=== PATIENT | female | born 1960 | race Caucasian/White ===

== ENCOUNTER 2020-08-05 07:20 | Outpatient (CLI) | payer OTHER, SELFPAY ==
--- NOTE | 2020-08-05 07:27 | MM_ITS ---
WS: [id number] SCREENING DIGITAL MAMMOGRAM WITH CAD HISTORY: SCREENING COMPARISON: 05/03/2019, 05/25/2018 and 05/10/2017 Bilateral CC and MLO views submitted. Computer aided detection analyzed. Breast composition: The breasts are heterogeneously dense, which may obscure small masses. Asymmetry measuring 12 mm upper outer quadrant of the RIGHT breast at a middle depth with mild distor tion. There is an additional linear asymmetry measuring 3.0 cm upper outer quadrant of the LEFT breas t, posterior which is new. 10 mm nodule in the medial LEFT breast seen only on the CC projection. MM/[place] [id number] IMPRESSION: BI-RADS: 0-Incomplete: Need additional imaging evaluation FOLLOW UP: Need Additional Imaging Bilateral breast: Spot compression views (CC and MLO). True ML. Ultrasound to debby sosa if abnormality persists.
== END 2020-08-05 07:21 | disposition home or self-care (01) ==
LOC: RADSHAW 07:24
PROVIDERS: PCP Internal Medicine; Visit Provider Internal Medicine
DX: Z12.31 Encounter for screening mammogram for malignant neoplasm of breast (principal); N64.89 Other specified disorders of breast
CPT/HCPCS: 77067

== ENCOUNTER 2020-08-23 07:41 | Outpatient (CLI) | payer OTHER, SELFPAY ==
--- NOTE | 2020-08-23 07:44 | MM_ITS ---
WS: [id number] BILATERAL ADDITIONAL VIEWS DIGITAL MAMMOGRAM WITH CAD LEFT breast ultrasound, limited HISTORY: INCONCLUSIVE MAMMO COMPARISON: 08/05/2020, 07/03/2019, 05/25/2018 and 05/10/2017 Technique: Bilateral spot compression views and ML views. Breast composition: The breasts are heterogeneously dense, which may obscure small masses. The asymm etry seen in the lateral RIGHT breast resolves with additional imaging. No residual distortion or inc reased density. Multiple asymmetries in the LEFT breast did not completely resolve with additional sp ot compression views. There is no distortion associated with the asymmetries. Asymmetry noted in the upper outer quadrant of the LEFT breast and in the medial LEFT breast in the anterior and posterior d epth. LEFT breast ultrasound, limited. Ultrasound of the upper outer quadrant of the LEFT breast demonstrates a 1.2 x 0.7 x 0.4 cm hypoechoi c elongated nodule with no increased vascularity. This may be a mildly prominent duct or complex cyst . No additional asymmetries are noted in the upper outer quadrant of the LEFT breast or in the medial breast. MM/[id number] IMPRESSION: BI-RADS: 3-Probably Benign FOLLOW UP: 6 Month Follow-up Asymmetries in the LEFT breast persists with additional views but no abnormalit y seen mammographically. Patient did provide a history of recent medication rm nge. If the patient was placed on hormone therapy these asymmetries may be rela loreto to hormone replacement therapy. As these findings are new since the prior s rosannedy 6 month follow-up is recommended. Recommend 6 month LEFT diagnostic mammogram with possible ultrasound.
--- NOTE | 2020-08-23 08:20 | US_ITS ---
WS: [id number] BILATERAL ADDITIONAL VIEWS DIGITAL MAMMOGRAM WITH CAD LEFT breast ultrasound, limited HISTORY: INCONCLUSIVE MAMMO COMPARISON: 08/05/2020, 07/03/2019, 05/25/2018 and 05/10/2017 Technique: Bilateral spot compression views and ML views. Breast composition: The breasts are heterogeneously dense, which may obscure small masses. The asymm etry seen in the lateral RIGHT breast resolves with additional imaging. No residual distortion or inc reased density. Multiple asymmetries in the LEFT breast did not completely resolve with additional sp ot compression views. There is no distortion associated with the asymmetries. Asymmetry noted in the upper outer quadrant of the LEFT breast and in the medial LEFT breast in the anterior and posterior d epth. LEFT breast ultrasound, limited. Ultrasound of the upper outer quadrant of the LEFT breast demonstrates a 1.2 x 0.7 x 0.4 cm hypoechoi c elongated nodule with no increased vascularity. This may be a mildly prominent duct or complex cyst . No additional asymmetries are noted in the upper outer quadrant of the LEFT breast or in the medial breast. US/US breast LT limited* [id number] IMPRESSION: BI-RADS: 3-Probably Benign FOLLOW UP: 6 Month Follow-up Asymmetries in the LEFT breast persists with additional views but no abnormalit y seen mammographically. Patient did provide a history of recent medication rm nge. If the patient was placed on hormone therapy these asymmetries may be rela loreto to hormone replacement therapy. As these findings are new since the prior s rosannedy 6 month follow-up is recommended. Recommend 6 month LEFT diagnostic mammogram with possible ultrasound.
== END 2020-08-23 07:42 | disposition home or self-care (01) ==
LOC: RADSHAW 07:43
PROVIDERS: PCP Internal Medicine; Visit Provider Internal Medicine
DX: R92.2 Inconclusive mammogram (principal); N64.89 Other specified disorders of breast
CPT/HCPCS: 76642; 77066

== ENCOUNTER 2022-11-10 10:32 | Emergency (ER) | payer OTHER, SELFPAY ==
[2022-11-10 10:41] VITALS: BP 166/89; PULSE 109; RESP 20; TEMP 36.8; BMI 30.9
--- NOTE | 2022-11-10 11:07 | XRR_ITS ---
PROCEDURE INFORMATION: Exam: XR Chest Exam date and time: 11/10/2022 11:31 AM Age: 62 years old Clinical indication: Shortness of breath; Additional info: SOB TECHNIQUE: Imaging protocol: Radiologic exam of the chest. Views: 1 view. COMPARISON: CT abdomen pelvis w con* [id number] 03/19/2017 10:35 AM FINDINGS: Lungs: Lung volumes are mildly decreased likely due to body habitus. No consolidation. Pleural spaces: Unremarkable. No pleural effusion. No pneumothorax. Heart/Mediastinum: Indistinct left cardiophrenic angle density believed secondary to incidental epicardial fat. No cardiomegaly. Bones/joints: Unremarkable for age. XR/XR chest 1V portable [id number] IMPRESSION: No active disease.
[2022-11-10 11:32] VITALS: BP 138/83; PULSE 109; RESP 24; O2SAT 100
--- NOTE | 2022-11-10 11:39 | W.ED.SOB ---
HPI - SOB/Dyspnea General: Chief Complaint: Shortness of Breath/Dyspnea Stated Complaint: SOB Time Seen by Provider: 11/10/22 11:29 History of Present Illness: HPI Narrative: Patient presents to the ER with complaints of shortness of breath and tachypnea. Patient is seen here primary care doctor twice in the last week since this is started. Patient has finished a round of what sounded like a Medrol Dosepak and azithromycin. Patient is not getting any better. Patient has used her rescue inhaler today but not her nebulizer. Patient is anxious at this time. She denies any chest pain. MD elicited complaint: shortness of breath Pertinent past history: asthma and other (Seasonal allergies) Onset (ago): day(s) (7 days ago) Context: allergen exposure Timing: constant and progressively worsening Severity: mild Exacerbating factors: exertion Relieving factors: nothing Known history of: asthma Associated symptoms: Deny abdominal pain, chest pain, fever(s), nausea, palpitations or vomiting Treatment prior to arrival: bronchodilator Review of Systems General: Reports: 10 or more systems reviewed and unremarkable except in HPI and below Const: Denies: fever(s) or chills Eyes: Denies: change in vision or photophobia ENMT: Denies: throat pain or enlarged tonsils Card: Denies: chest pain, palpitations, irregular heart rhythm or edema Resp: Reports: dyspnea and wheezing; Denies: productive cough or non-productive cough GI: Denies: abdominal pain, nausea, vomiting or diarrhea : Denies: flank pain, difficulty voiding or dysuria Musc: Denies: neck pain or back pain Skin/Breast: Denies: rash or pruritus Physical Exam Const: COMMON NORMALS: no acute distress, average body habitus, patient oriented x3, no limitations, healthy appearing, alert and well nourished HENMT: COMMON NORMALS: normocephalic, atraumatic, hearing grossly normal bilaterally, external ears normal, Normal external nose present and moist oral mucous membranes HEAD & SCALP: normocephalic and atraumatic NOSE: Normal external nose present EXTERNAL EAR: Yes external ears normal Eye: COMMON NORMALS: Equal, round and reactive pupils present, EOMs intact bilaterally, conjunctivae normal and no scleral icterus CONJUNCTIVA: Yes conjunctivae normal PUPIL: Yes Equal, round and reactive pupils present Neck/C-Spine: COMMON NORMALS: full ROM, no lymphadenopathy, supple, no meningeal signs, no JVD and Thyroid normal THYROID: Thyroid normal Lymph: LYMPHATIC: no lymphadenopathy noted Chest: COMMONS NORMALS: normal inspection of the chest and normal palpation of entire chest wall Resp: EFFORT & INSPECTION: Yes able to speak in complete sentences, Yes symmetric chest movement and Yes tachypneic AUSCULTATION: wheezes scattered wheezes Cardio: COMMON NORMALS: no JVD, regular rate, regular rhythm, S1 normal heart sound present and S2 normal heart sound present RATE: regular rate RHYTHM: regular rhythm HEART SOUNDS: S1 normal heart sound present and S2 normal heart sound present GI: COMMON NORMALS: Normal to inspection, nondistended, normoactive bowel sounds present, Soft to palpation, non-tender, No hepatosplenomegaly present and no masses PALPATION: Yes Soft to palpation and Yes No hepatosplenomegaly present Neuro: COMMON NORMALS: patient oriented x3 SENSORIUM/ORIENTATION: Yes alert MENINGEAL SIGNS: Yes no meningeal signs Course Vital Signs: Vital signs: Vital Signs Temperature 98.3 F 11/10/22 10:41 Pulse Rate 94 11/10/22 12:07 Respiratory Rate 20 H 11/10/22 12:03 Blood Pressure 138/83 11/10/22 11:32 Pulse Oximetry 99 11/10/22 12:03 Oxygen Delivery Me thod Room Air 11/10/22 12:03 MDM - SOB/Dyspnea Medical Decision Making Patient presents to the ER with complaints of tachypnea and shortness of breath. Patient has been to her primary care doc at least twice treated with antibiotics and steroids but does not feel she is getting any better. Lab work was obtained which revealed a white count of 14.2 hemoglobin hematocrit of 16.1 and 49.3 metabolic panel was essentially benign chest x-ray was essentially benign as well. Differential Diagnosis Likely asthma with exacerbation; Unlikely acute exacerbation of chronic obstructive airways disease, congestive heart failure, community acquired pneumonia or pulmonary embolism Medical Records I reviewed the patient's medical records. Lab Data I reviewed the patient's lab results. 11/10/22 11:50 11/10/22 11:50 Labs/Radiology: Radiology Impressions Chest CT 11/10/22 12:38 IMPRESSION: 1. Subsegmental opacification with associated bronchiectasis at the lingula. Suspect chronic atelectasis. Mildly progressed since 2016. 2. Otherwise no pneumonia. 3. No cardiomegaly. 4. No pericardial effusion or pleural effusion. 5. Prior cholecystectomy. Laboratory Results WBC 14.2 10^3/uL (4.0-10.0) H 11/10/22 11:50 RBC 5.49 10^6/uL (4.1-5.3) H 11/10/22 11:50 Hgb 16.1 g/dL (11.5-15.3) H 11/10/22 11:50 Hct 49.3 % (37.0-47.0) H 11/10/22 11:50 MCV 89.8 fl (81-99) 11/10/22 11:50 MCH 29.3 pg (28.0-34.0) 11/10/22 11:50 MCHC 32.7 g/dL (30.0-36.0) 11/10/22 11:50 RDW 12.6 % (12.1-15.1) 11/10/22 11:50 Plt Count 364 10^3/cmm (130-400) 11/10/22 11:50 MPV 10.7 fL (7.4-10.4) H 11/10/22 11:50 Neut % (Auto) 70.3 % 11/10/22 11:50 Lymph % (Auto) 20.8 % 11/10/22 11:50 [place] % (Auto) 5.7 % 11/10/22 11:50 Eos % (Auto) 2.1 % 11/10/22 11:50 Baso % (Auto) 0.5 % 11/10/22 11:50 Neut # (Auto) 9.95 10^3/uL (1.8-7.7) H 11/10/22 11:50 Lymph # (Auto) 3.0 10^3/uL (0.8-4.8) 11/10/22 11:50 [place] # (Auto) 0.8 10^3/uL (0.2-0.9) 11/10/22 11:50 Eos # (Auto) 0.3 10^3/uL (0.0-0.8) 11/10/22 11:50 Baso # (Auto) 0.1 10^3/uL (0.0-0.1) 11/10/22 11:50 Nucleated RBC % (auto) 0 % 11/10/22 11:50 Nucleated RBCs # 0.0 /100WBC 11/10/22 11:50 Sodium 138 mmol/L (136-145) 11/10/22 11:50 Potassium 4.2 mmol/L (3.5-5.1) 11/10/22 11:50 Chloride 103 mmol/L (98-107) 11/10/22 11:50 Carbon Dioxide 22 mmol/L (22-29) 11/10/22 11:50 Anion Gap 17.2 (5-19) 11/10/22 11:50 BUN 11 mg/dL (8-23) 11/10/22 11:50 Creatinine 0.7 mg/dL (0.5-0.9) 11/10/22 11:50 GFR Calculation 85.1 mL/min (90-130) L 11/10/22 11:50 Glucose 87 mg/dL (65-115) 11/10/22 11:50 Calculated Osmolality 285 mOsm/kg (285-295) 11/10/22 11:50 Calcium 9.6 mg/dL (8.5-10.5) 11/10/22 11:50 Total Bilirubin 0.3 mg/dL (0.15-1.2) 11/10/22 11:50 AST 14 U/L (0-32) 11/10/22 11:50 ALT 16 U/L (0-33) 11/10/22 11:50 Alkaline Phosphatase 101 U/L (35-105) 11/10/22 11:50 NT-Pro-B Natriuret Pep 36 pg/mL (0-125) 11/10/22 11:50 Total Protein 6.7 g/dL (6.6-8.7) 11/10/22 11:50 Albumin 3.9 g/dL (3.5-5.2) 11/10/22 11:50 Globulin 2.8 g/dL (1.3-4.6) 11/10/22 11:50 Discharge Plan Discharge Patient Disposition: Home Clinical Impression: Anxiety Condition: Stable Prescriptions: No Action albuterol sulfate 2.5 mg /3 mL (0.083 %) solution for nebulization 2.5 mg inhalation Q6H PRN (Reason: Shortness Of Breath) tizanidine 4 mg tablet 4 mg PO DAILY PRN (Reason: Muscle Pain) liothyronine 25 mcg tablet 25 mcg PO DAILY lorazepam 0.5 mg tablet 0.5 mg PO TID PRN (Reason: Anxiety) levothyroxine 125 mcg tablet 125 mcg PO DAILY budesonide 0.5 mg/2 mL suspension for nebulization 0.5 mg inhalation Q6H PRN (Reason: Shortness Of Breath) montelukast 10 mg tablet 10 mg PO DAILY duloxetine 30 mg capsule,delayed release(DR/EC) 30 mg PO DAILY Symbicort 160-4.5 mcg/actuation HFA aerosol inhaler 2 puff INHALATION BID Xyzal 5 mg Tablet 5 mg PO DAILY Discharge Orders: Discharge ED (Routine); Ordered 11/10/22 Ordered By: Alonso Sanchez Referrals: Mariano Sahu DO [Primary Care Provider] - 1 week Patient Instructions: Dyspnea, Anxiety (ED) Activity Restrictions/Additional Instructions: Please take your lorazepam as instructed for anxiety. Please take your Symbicort, budesonide, albuterol, Xyzal, Singulair as directed. Please follow-up with your primary care practitioner next 1 to 2 weeks as needed. Coding Level of Care Code ED Flanging Roll Operator for Jono Marina
[2022-11-10 11:56] LABS: Basophils # 0.1 10^3/uL (0.0-0.1); Basophils % 0.5 %; Eosinophils # 0.3 10^3/uL (0.0-0.8); Eosinophils % 2.1 %; Hematocrit 49.3 % (37.0-47.0); Hemoglobin 16.1 g/dL (11.5-15.3); Lymphocytes % 20.8 %; Mean Corpuscular HGB Conc 32.7 g/dL (30.0-36.0); Mean Corpuscular Hemoglobin 29.3 pg (28.0-34.0); Mean Corpuscular Volume 89.8 fl (81-99); Mean Platelet Volume 10.7 fL (7.4-10.4); Monocytes # 0.8 10^3/uL (0.2-0.9); Monocytes % 5.7 %; Neutrophils # 9.95 10^3/uL (1.8-7.7); Neutrophils % 70.3 %; Nucleated Red Blood Cells % 0 %; Platelet Count 364 10^3/cmm (130-400); Red Blood Count 5.49 10^6/uL (4.1-5.3); Red Cell Distribution Width 12.6 % (12.1-15.1); White Blood Count 14.2 10^3/uL (4.0-10.0)
[2022-11-10 12:03] VITALS: PULSE 96; RESP 20; O2SAT 99
[2022-11-10] MEDS: ipratropium-albuterol 3 mL Neb INHALATION (12:03)
[2022-11-10 12:07] VITALS: PULSE 94
[2022-11-10] MEDS: LORazepam 2 mg/mL INJ 1 mL 1 MG IVP (12:15)
[2022-11-10 12:29] LABS: Alanine Aminotransferase 16 U/L (0-33); Albumin Level 3.9 g/dL (3.5-5.2); Alkaline Phosphatase 101 U/L (35-105); Anion Gap 17.2 (5-19); Aspartate Amino Transferase 14 U/L (0-32); Blood Urea Nitrogen 11 mg/dL (8-23); Calcium 9.6 mg/dL (8.5-10.5); Carbon Dioxide 22 mmol/L (22-29); Chloride 103 mmol/L (98-107); Globulin 2.8 g/dL (1.3-4.6); Glomerular Filtration Rate 85.1 mL/min (90-130); Glucose 87 mg/dL (65-115); NT Pro B Type Natriuretic Pept 36 pg/mL (0-125); Osmolality Calculated 285 mOsm/kg (285-295); Potassium 4.2 mmol/L (3.5-5.1); Sodium 138 mmol/L (136-145); Total Bilirubin 0.3 mg/dL (0.15-1.2); Total Protein 6.7 g/dL (6.6-8.7)
--- NOTE | 2022-11-10 12:38 | CT_ITS ---
WS: [id number] CT chest wo con [id number] HISTORY: dyspnea, TECHNIQUE: Axial imaging performed through the thorax. Coronal and sagittal reformats are submitted. All CT scans at [facility] use at least one of these dose optimization techniques: automated exposure control; mA and/or kV adjustment per patient size (includes targeted exams where dose is mat ched to clinical indication); or iterative reconstruction. CONTRAST: None DLP: 521.11 mGy.cm COMPARISON: None available. Lungs and central airway: Well aerated lungs. Focal subsegmental opacification with associated bronch iectasis in the lingula. No mass or pneumonia. Pleura: Normal. No pleural effusion. Heart and pericardium: Normal size heart with no pericardial effusion. Mediastinum and ledy: Calcified mediastinal and hilar lymph nodes. No adenopathy. Vessels: Normal size aortic and pulmonary artery. No coronary artery calcifications. Chest wall and lower neck: 5 mm LEFT thyroid nodule. Upper abdomen: Small hiatal hernia. Liver is mildly enlarged. Prior cholecystectomy. Splenic granulom michelle. No adrenal mass. Osseous structures: No destructive process. CT/CT chest wo con [id number] IMPRESSION: 1. Subsegmental opacification with associated bronchiectasis at the lingula. S uspect chronic atelectasis. Mildly progressed since 2017. 2. Otherwise no pneumonia. 3. No cardiomegaly. 4. No pericardial effusion or pleural effusion. 5. Prior cholecystectomy.
== END 2022-11-10 15:09 | disposition home or self-care (01) ==
PROVIDERS: Family Medicine; Emergency Provider Emergency Medicine; PCP Internal Medicine
DX: F41.9 Anxiety disorder, unspecified (principal)
CPT/HCPCS: 36415; 71045; 71250; 80053; 83880; 85025; 94640; 96374; 99285; J2060

== ENCOUNTER 2024-02-09 10:30 | Emergency (ER) | payer OTHER, SELFPAY ==
[2024-02-09 10:57] VITALS: BP 124/81; PULSE 115; RESP 18; TEMP 36.4; O2SAT 96
[2024-02-09 11:06] LABS: Basophils % 0.4 %; Eosinophils # 0.2 10^3/uL (0.0-0.8); Eosinophils % 2.7 %; Hematocrit 51.8 % (36-47); Lymphocytes % 26.5 %; Mean Corpuscular Hemoglobin 28.8 pg (27-33); Mean Corpuscular Volume 87.2 fl (85-98); Monocytes # 0.7 10^3/uL (0.2-0.9); Monocytes % 8.8 %; Neutrophils # 4.63 10^3/uL (1.8-7.7); Neutrophils % 61.5 %; Nucleated Red Blood Cells % 0 %; Platelet Count 377 10^3/cmm (157-399); Red Blood Count 5.94 10^6/uL (3.85-5.65); Red Cell Distribution Width 12.7 % (12.1-15.1); White Blood Count 7.52 10^3/uL (3.29-11.43)
[2024-02-09 11:23] LABS: Alanine Aminotransferase 83 U/L (0-33); Alkaline Phosphatase 166 U/L (35-105); Anion Gap 15.4 (5-19); Aspartate Amino Transferase 60 U/L (0-32); Blood Urea Nitrogen 9 mg/dL (8-23); Calcium 9.2 mg/dL (8.5-10.5); Carbon Dioxide 22 mmol/L (22-29); Chloride 106 mmol/L (98-107); Creatinine Clr Calc Pharmacy 102.6097; Globulin 3.3 g/dL (1.3-4.6); Glomerular Filtration Rate 101.3 mL/min (90-130); Glucose 104 mg/dL (65-115); Lipase 31 U/L (13-60); Osmolality Calculated 287 mOsm/kg (285-295); Potassium 4.4 mmol/L (3.5-5.1); Sodium 139 mmol/L (136-145); Total Bilirubin 0.5 mg/dL (0.15-1.2); Total Protein 7.3 g/dL (6.6-8.7)
--- NOTE | 2024-02-09 11:36 | CT_ITS ---
WS: [id number] CT ABDOMEN PELVIS TECHNIQUE: Contrast-enhanced CT of the abdomen and pelvis with coronal and sagittal reformatted image s. CLINICAL INFORMATION: diarrhea/llq pain COMPARISON: CT 2017 DLP: 793.[address] scans at [facility] use at least one of these dose optimization techniques: automated e xposure control; mA and/or kV adjustment per patient size (includes targeted exams where dose is matc hed to clinical indication); or iterative reconstruction. FINDINGS: Sigmoid diverticulosis. Small amount of inflammatory stranding and edema within the LEFT lower quadrant descending colon and proximal sigmoid colon compatible with acute diverticulitis. No evidence of of abscess or drainable f luid collection. No evidence of bowel obstruction. Lung bases are well aerated. Infiltration filtration of liver. Splenic granulomas. Cholecystectomy. N ormal portal vein and splenic vein. Normal pancreatic parenchymal enhancement. Small esophageal herni a. Adrenal glands are normal. Normal renal parenchymal enhancement. No hydronephrosis. Normal caliber abdominal aorta. Tiny fat-containing umbilical hernia. Normal appendix. Disc space narrowing worse a t L5-S1. CT/CT abdomen pelvis w con* [id number] IMPRESSION: 1. Mild acute diverticulitis in the LEFT lower quadrant descending colon and p roximal sigmoid colon with surrounding inflammatory stranding and slight indura tion. 2. No evidence of abscess or drainable fluid collection. 3. No other acute findings. Notified Flaco Mayer MD at 02/09/2024 12:54 PM.
--- NOTE | 2024-02-09 11:37 | ED_ITS ---
HPI - Abdominal Pain 2 General: Chief Complaint: Abdominal Pain Stated Complaint: abd pain Time Seen by Provider: 02/09/24 11:31 Source: patient Mode of arrival: ambulatory Limitations: no limitations History of Present Illness: 63-year-old female states that she has b een having abdominal pain over the last month it has been worsening states pains in her left lower quadrant she also has had some intermittent constipation and diarrhea states pain sharp in nature rates it a 4 out of 10 she denies any fevers denies any worsening proving factors. Associated Symptoms: Reports diarrhea; Denies chills, dysuria, fever(s), nausea and vomiting Review of Systems 2 Const: Denies: fever(s), chills, body aches or change in appetite ENMT: Denies: throat pain or dental pain Card: Denies: chest pain Resp: Denies: dyspnea GI: Reports: abdominal pain and diarrhea; Denies: nausea or vomiting : Denies: dysuria Musc: Denies: neck pain or back pain Skin/Breast: Denies: rash Neuro: Denies: headache(s) Physical Exam 2 Const: COMMON NORMALS: no acute distress, patient oriented x3 and healthy appearing HENMT: COMMON NORMALS: normocephalic and atraumatic HEAD & SCALP: n ormocephalic and atraumatic Neck/C-Spine: COMMON NORMALS: full ROM and supple Chest: COMMONS NORMALS: normal inspection of the chest Resp: COMMON NORMALS: normal respiratory effort Cardio: COMMON NORMALS: regular rate, regular rhythm and No murmurs present (Cardio) RATE: regular rate RHYTHM: regular rhythm GI: COMMON NORMALS: Normal to inspection, nondistended, normoactive bowel sounds present, Soft to palpation and no masses PALPATION: Yes Soft to palpation and Yes Tenderness to palpation present (GI) Details: LLQ Extremity: COMMON NORMALS: normal to inspection and full ROM Neuro: COMMON NORMALS: patient oriented x3, moves all extremities and no focal motor deficits Psych: COMMON NORMALS: mental status grossly normal, Normal thought process present and cooperative THOUGHT PROCESS: Normal thought process present Skin: COMMON NORMALS: no rashes or lesions noted and no wounds GENERAL SKIN EXAM: no rashes or lesions noted Course 2 Vital Signs: Vital signs: Vital Signs Temperature 97.6 F 02/09/24 10:57 Pulse Rate 102 H 02/09/24 11:46 Respiratory Rate 16 07/31/24 11:46 Blood Pressure 134/100 02/09/24 11:46 Pulse Oximetry 97 02/09/24 11:46 Oxygen Delivery Me thod Room Air 02/09/24 11:46 MDM - Abdominal Pain Medical Decision Making Patient presents with diarrhea along with some left lower quadrant pain CT shows a diverticulitis she has been well-appearing here not septic appearing we will start her on antibiotics along with pain meds she is follow-up with PCP and return if worsening. Medical Records I reviewed the patient's medical records. Lab Data I reviewed the patient's lab results. 02/09/24 10:55 02/09/24 10:55 Labs/Radiology: Radiology Impressions Abdomen/Pelvis CT 02/09/24 11:36 IMPRESSION: 1. Mild acute diverticulitis in the LEFT lower quadrant descending colon and proximal sigmoid colon with surrounding inflammatory stranding and slight induration. 2. No evidence of abscess or drainable fluid collection. 3. No other acute findings. Notified Flaco Mayer MD at 02/09/2024 12:54 PM. Laboratory Results WBC 7.52 10^3/uL (3.29-11.43) 02/09/24 10:55 RBC 5.94 10^6/uL (3.85-5.65) H 02/09/24 10:55 Hgb 17.10 g/dL (11.27-16.99) H 02/09/24 10:55 Hct 51.8 % (36-47) H 02/09/24 10:55 MCV 87.2 fl (85-98) 02/09/24 10:55 MCH 28.8 pg (27-33) 02/09/24 10:55 MCHC 33.0 g/dL (30-55) 02/09/24 10:55 RDW 12.7 % (12.1-15.1) 02/09/24 10:55 Plt Count 377 10^3/cmm (157-399) 02/09/24 10:55 MPV 11.0 fL (7.4-10.4) H 02/09/24 10:55 Neut % (Auto) 61.5 % 02/09/24 10:55 Lymph % (Auto) 26.5 % 02/09/24 10:55 [place] % (Auto) 8.8 % 02/09/24 10:55 Eos % (Auto) 2.7 % 02/09/24 10:55 Baso % (Auto) 0.4 % 02/09/24 10:55 Neut # (Auto) 4.63 10^3/uL (1.8-7.7) 02/09/24 10:55 Lymph # (Auto) 2.0 10^3/uL (0.8-4.8) 02/09/24 10:55 [place] # (Auto) 0.7 10^3/uL (0.2-0.9) 02/09/24 10:55 Eos # (Auto) 0.2 10^3/uL (0.0-0.8) 02/09/24 10:55 Baso # (Auto) 0.0 10^3/uL (0.0-0.1) 02/09/24 10:55 Nucleated RBC % (auto) 0 % 02/09/24 10:55 Nucleated RBCs # 0.0 /100WBC 02/09/24 10:55 Sodium 139 mmol/L (136-145) 02/09/24 10:55 Potassium 4.4 mmol/L (3.5-5.1) 02/09/24 10:55 Chloride 106 mmol/L (98-107) 02/09/24 10:55 Carbon Dioxide 22 mmol/L (22-29) 02/09/24 10:55 Anion Gap 15.4 (5-19) 02/09/24 10:55 BUN 9 mg/dL (8-23) 02/09/24 10:55 Creatinine 0.6 mg/dL (0.5-0.9) 02/09/24 10:55 GFR Calculation 101.3 mL/min (90-130) 02/09/24 10:55 Glucose 104 mg/dL (65-115) 02/09/24 10:55 Calculated Osmolality 287 mOsm/kg (285-295) 02/09/24 10:55 Calcium 9.2 mg/dL (8.5-10.5) 02/09/24 10:55 Total Bilirubin 0.5 mg/dL (0.15-1.2) 02/09/24 10:55 AST 60 U/L (0-32) H 02/09/24 10:55 ALT 83 U/L (0-33) H 02/09/24 10:55 Alkaline Phosphatase 166 U/L (35-105) H 02/09/24 10:55 Total Protein 7.3 g/dL (6.6-8.7) 02/09/24 10:55 Albumin 4.0 g/dL (3.5-5.2) 02/09/24 10:55 Globulin 3.3 g/dL (1.3-4.6) 02/09/24 10:55 Lipase 31 U/L (13-60) 02/09/24 10:55 Urine Color Yellow (Yellow) 02/09/24 11:39 Urine Appearance Clear (CLEAR) 02/09/24 11:39 Urine pH 6.0 (5-7) 02/09/24 11:39 Ur Specific [place] 1.005 (1.005-1.030) 02/09/24 11:39 Urine Protein Negative (Negative) 02/09/24 11:39 Urine Glucose (UA) Negative (Normal) 02/09/24 11:39 Urine Ketones Trace (Negative) 02/09/24 11:39 Urine Blood Negative (Negative) 02/09/24 11:39 Urine Nitrate Negative (Negative) 02/09/24 11:39 Urine Bilirubin Negative (Negative) 02/09/24 11:39 Urine Urobilinogen 0.2 mg/dL (Negative) 02/09/24 11:39 Ur Leukocyte Esterase Negative (Negative) 02/09/24 11:39 Amorphous Sediment Not Reportable 02/09/24 11:39 All radiology interpretation(s) finalized by discharge Discharge Plan Discharge Patient Disposition: Home Clinical Impression: Diverticulitis Condition: Stable Prescriptions: New hydrocodone-acetaminophen 5-325 mg tablet 1 tab PO Q6H PRN (Reason: pain) Qty: 14 0RF metronidazole 500 mg tablet 500 mg PO Q8H 7 Days Qty: 21 0RF ciprofloxacin HCl [Cipro] 500 mg tablet 500 mg PO BID Qty: 14 0RF ondansetron 4 mg tablet,disintegrating 4 mg PO Q6H PRN (Reason: nausea and vomiting) Qty: 14 0RF No Action albuterol sulfate 2.5 mg /3 mL (0.083 %) solution for nebulization 2.5 mg inhalation Q6H PRN (Reason: Shortness Of Breath) kirstiedine 4 mg tablet 4 mg PO DAILY PRN (Reason: Muscle Pain) liothyronine 25 mcg tablet 25 mcg PO DAILY lorazepam 0.5 mg tablet 0.5 mg PO TID PRN (Reason: Anxiety) levothyroxine 125 mcg tablet 125 mcg PO DAILY budesonide 0.5 mg/2 mL suspension for nebulization 0.5 mg inhalation Q6H PRN (Reason: Shortness Of Breath) montelukast 10 mg tablet 10 mg PO DAILY duloxetine 30 mg capsule,delayed release(DR/EC) 30 mg PO DAILY Symbicort 160-4.5 mcg/actuation HFA aerosol inhaler 2 puff INHALATION BID Xyzal 5 mg Tablet 5 mg PO DAILY Discharge Orders: Discharge ED (Routine); Ordered 02/09/24 Ordered By: Flaco Mayer Referrals: Mariano Sahu DO [Primary Care Provider] - Discharge Diet: Advance as tolerated Discharge Activity: Resume usual activity Patient Instructions: Diverticulitis (ED) Coding Level of Care Code ED Health Technician Hearing for Jono Marina
[2024-02-09 11:46] VITALS: BP 134/100; PULSE 102; RESP 16; O2SAT 97
[2024-02-09 11:54] LABS: Charge for UA Resulting for Rev
[2024-02-09 12:01] VITALS: PULSE 101; O2SAT 96
[2024-02-09 12:13] LABS: Bilirubin Urine Negative (Negative); Blood Urine Negative (Negative); Glucose Urine UA Negative (Normal); Ketones Urine Trace (Negative); Leukocyte Esterase Urine Negative (Negative); Nitrate Urine Negative (Negative); Protein Urine Negative (Negative); Specific Gravity, Urine 1.005 (1.005-1.030); Urine Appearance Clear (CLEAR); Urine Color Yellow (Yellow); Urobilinogen Urine 0.2 mg/dL (Negative)
[2024-02-09] MEDS: iohexol 350 mg/mL 500 mL Btl (per mL) IV (12:13)
[2024-02-09 12:31] VITALS: PULSE 97; O2SAT 98
[2024-02-09 13:01] VITALS: PULSE 101; O2SAT 99
--- NOTE | 2024-02-09 13:27 | PC.NURSE ---
Med/Surg received a call from [facility] stating that they had received a Rx for Hydrocodone-APAP and they didn't have that medication in stock at this time. I called and spoke with the patient and she stated she was still in [employer], so I offered to have it sent to [facility] location that has a drive thru option. She agreed to this. I called and spoke with Dr. Mayer and asked him to please send the Rx to the [facility] location and he is in agreement. I called back and spoke with the patient and informed her the Rx is going to [place] as we discussed. She verbalizes understanding and denies no further questions or concerns.
== END 2024-02-09 13:20 | disposition home or self-care (01) ==
PROVIDERS: Emergency Provider Emergency Medicine; PCP Internal Medicine
DX: K57.92 Diverticulitis of intestine, part unspecified, without perforation or abscess without bleeding (principal)
CPT/HCPCS: 36415; 74177; 80053; 81003; 81015; 83690; 85025; 99285; Q9967

== ENCOUNTER 2024-09-18 14:00 | Outpatient (CLI) | payer OTHER, SELFPAY ==
--- NOTE | 2024-09-18 14:01 | MM_ITS ---
WS: [id number] BILATERAL 3D TOMOSYNTHESIS DIGITAL SCREENING MAMMOGRAPHY WITH CAD CLINICAL INFORMATION: SCREENING HISTORY: Screening mammogram. No current complaints. COMPARISON: 2020 TECHNIQUE: Bilateral CC and MLO views. FINDINGS: The breasts are composed of heterogeneous fibroglandular density tissue, which can limit the detection of small underlying mass lesions. No suspicious mass, asymmetry, calcifications, or architectural distortion. No evidence of malignancy. A few incidental punctate calcifications. Stable asymmetries upper outer LEFT breast. MM/MM [facility] tomosynthesis [id number] IMPRESSION: DENSITY: The breasts are heterogeneously dense, which may obscure small masses. BI-RADS: 2 - Benign FOLLOW UP: 1 Year Follow-up Recommend return to annual screening mammography.
== END 2024-09-18 14:01 | disposition home or self-care (01) ==
PROVIDERS: PCP Nurse Practitioner Family; Visit Provider Nurse Practitioner Family
DX: Z12.31 Encounter for screening mammogram for malignant neoplasm of breast (principal); R92.333 Mammographic heterogeneous density, bilateral breasts; R92.1 Mammographic calcification found on diagnostic imaging of breast; N64.89 Other specified disorders of breast
CPT/HCPCS: 77063; 77067

== ENCOUNTER 2025-05-22 09:11 | Emergency (ER) | payer OTHER, SELFPAY ==
--- NOTE | 2025-05-22 09:25 | W.ED.ABDPA2 ---
HPI - Abdominal Pain General: Chief Complaint: Abdominal Pain Stated Complaint: abd pain, n/v, fever Time Seen by Provider: 05/22/25 09:21 History of Present Illness: 64-year-old female presents emergency room complaining of left lower quadrant abdominal pain that began 4 days ago. No hematochezia or melena. She has been nauseous but still been able to eat. She has had 2 colonoscopies in the last 5 years had some polyps removed at the most recent 1 she was told to repeat in 5 years she is not on any anticoagulants. Associated Symptoms: Reports nausea and vomiting; Denies chills, coffee ground emesis, dysuria, fever(s), hematochezia, hematemesis and melena Related Data Home Medications ?Medication ?Instructions ?Recorded ?Confirmed duloxetine 30 mg capsule,delayed 30 mg PO DAILY 11/10/22 05/22/25 release levothyroxine 125 mcg tablet 125 mcg PO DAILY 11/10/22 05/22/25 liothyronine 25 mcg tablet 25 mcg PO QAM 11/10/22 05/22/25 montelukast 10 mg tablet 10 mg PO DAILY 11/10/22 05/22/25 tizanidine 4 mg tablet 4 mg PO BEDTIME Muscle Pain 11/10/22 05/22/25 meloxicam 15 mg tablet 7.5 mg PO DAILY PRN pain 09/11/24 05/22/25 propranolol 10 mg tablet 20 mg PO BID 09/11/24 05/22/25 albuterol sulfate 90 mcg/actuation 1 inh inhalation .Q4-6H PRN 05/22/25 05/22/25 aerosol inhaler Shortness Of Breath baclofen 10 mg tablet 10 mg PO BID 05/22/25 05/22/25 clonazepam 0.5 mg tablet 0.5 mg PO TID 05/22/25 05/22/25 estradiol 0.5 mg tablet 0.5 mg PO DAILY 05/22/25 05/22/25 nystatin 100,000 unit/gram topical 1 applic topical BID PRN Skin 05/22/25 05/22/25 powder Irritation progesterone micronized 200 mg 200 mg PO BEDTIME 05/22/25 05/22/25 capsule Previous Rx's ?Medication ?Instructions ?Recorded amoxicillin 875 mg-potassium 1 tab PO BID #20 tabs 05/22/25 clavulanate 125 mg tablet hydrocodone 5 mg-acetaminophen 325 1 tab PO Q6H PRN pain #10 tabs 05/22/25 mg tablet ondansetron HCl 4 mg tablet 4 mg PO Q6H PRN nausea and 05/22/25 vomiting #20 tabs Allergies Allergy/AdvReac Type Severity Reaction Status Date / Time tramadol Allergy Unknown Verified 05/22/25 09:30 Review of Systems Const: Denies: fever(s) or chills Card: Denies: chest pain Resp: Denies: dyspnea GI: Reports: abdominal pain, nausea and vomiting; Denies: hematemesis, coffee ground emesis, hematochezia or melena : Denies: dysuria, urinary frequency or urinary urgency Musc: Denies: neck pain or back pain Skin/Breast: Denies: rash PFSH ED PFSH: Social History Smoking and tobacco/nicotine status: never used tobacco/nicotine Physical Exam Const: COMMON NORMALS: no acute distress GENERAL APPEARANCE: cooperative and comfortable ORIENTATION/CONSCIOUSNESS: Yes awake, Yes oriented to person, Yes oriented to place and Yes oriented to time HENMT: COMMON NORMALS: normocephalic, atraumatic and hearing grossly normal bilaterally HEAD & SCALP: normocephalic and atraumatic Resp: COMMON NORMALS: normal respiratory effort, No retractions, No use of accessory muscles and clear to auscultation bilaterally AUSCULTATION: clear to auscultation bilaterally Cardio: COMMON NORMALS: regular rate, regular rhythm and No murmurs present (Cardio) RATE: regular rate RHYTHM: regular rhythm GI: COMMON NORMALS: Soft to palpation and No hepatosplenomegaly present AUSCULTATION: Yes normoactive bowel sounds PALPATION: Yes Soft to palpation, No Tenderness to palpation present (GI), No Guarding due to palpation present (GI) and Yes No hepatosplenomegaly present Extremity: COMMON NORMALS: normal to inspection, capillary refill normal, no clubbing, cyanosis or edema, no calf tenderness and no pedal edema Neuro: SENSORIUM/ORIENTATION: Yes oriented to person, Yes oriented to place and Yes oriented to time Skin: COMMON NORMALS: no rashes or lesions noted GENERAL SKIN EXAM: no rashes or lesions noted Course Vital Signs: Vital signs: Vital Signs Temperature 97.4 F L 05/22/25 09:27 Pulse Rate 78 05/22/25 10:32 Respiratory Rate 14 05/22/25 09:27 Blood Pressure 126/79 05/22/25 10:32 Pulse Oximetry 99 05/22/25 10:32 Oxygen Delivery Me thod Room Air 05/22/25 10:14 MDM - Abdominal Pain Medical Decision Making Patient seen and evaluated for abdominal pain CBC CMP and UA ordered. Differential diagnosis includes cystitis pyelonephritis renal stone diverticulitis bowel obstruction. Based on exam and laboratory test is no sign of bowel obstruction her white count is normal she does have 2+ leukocyte esterase but is just as many squamous cells as WBCs and she is not having any dysuria at this time. Will treat for diverticulitis. Start Augmentin and gave hydrocodone and promethazine to use. Close liquid diet for 2 to 3 days and advance as tolerated. She has any worsening or changes symptoms develop fever return to the emergency room. Lab Data I reviewed the patient's lab results. 05/22/25 09:25 05/22/25 09:25 Labs/Radiology: Laboratory Results WBC 10.10 10^3/uL (3.29-11.43) 05/22/25 09:25 RBC 4.79 10^6/uL (3.85-5.65) 05/22/25 09:25 Hgb 14.20 g/dL (11.27-16.99) 05/22/25 09:25 Hct 41.9 % (36-47) 05/22/25 09:25 MCV 87.5 fl (85-98) 05/22/25 09:25 MCH 29.6 pg (27-33) 05/22/25 09:25 MCHC 33.9 g/dL (30-55) 05/22/25 09:25 RDW 13.2 % (12.1-15.1) 05/22/25 09:25 Plt Count 361 10^3/cmm (157-399) 05/22/25 09:25 MPV 10.9 fL (7.4-10.4) H 05/22/25 09:25 Neut % (Auto) 67.1 % 05/22/25 09:25 Lymph % (Auto) 20.4 % 05/22/25 09:25 [place] % (Auto) 6.6 % 05/22/25 09:25 Eos % (Auto) 5.3 % 05/22/25 09:25 Baso % (Auto) 0.4 % 05/22/25 09:25 Neut # (Auto) 6.77 10^3/uL (1.8-7.7) 05/22/25 09:25 Lymph # (Auto) 2.1 10^3/uL (0.8-4.8) 05/22/25 09:25 [place] # (Auto) 0.7 10^3/uL (0.2-0.9) 05/22/25 09:25 Eos # (Auto) 0.5 10^3/uL (0.0-0.8) 05/22/25 09:25 Baso # (Auto) 0.0 10^3/uL (0.0-0.1) 05/22/25 09:25 Nucleated RBC % (auto) 0 % 05/22/25 09:25 Nucleated RBCs # 0.0 /100WBC 05/22/25 09:25 Sodium 141 mmol/L (136-145) 05/22/25 09:25 Potassium 4.5 mmol/L (3.5-5.1) 05/22/25 09:25 Chloride 106 mmol/L (98-107) 05/22/25 09:25 Carbon Dioxide 24 mmol/L (22-29) 05/22/25 09:25 Anion Gap 15.5 (5-19) 05/22/25 09:25 BUN 8 mg/dL (8-23) 05/22/25 09:25 Creatinine 0.7 mg/dL (0.5-0.9) 05/22/25 09:25 GFR Calculation 84.5 mL/min (90-130) L 05/22/25 09:25 Glucose 112 mg/dL (65-115) 05/22/25 09:25 Calculated Osmolality 291 mOsm/kg (285-295) 05/22/25 09:25 Calcium 9.4 mg/dL (8.5-10.5) 05/22/25 09:25 Total Bilirubin 0.3 mg/dL (0.15-1.2) 05/22/25 09:25 AST 20 U/L (0-32) 05/22/25 09:25 ALT 25 U/L (0-33) 05/22/25 09:25 Alkaline Phosphatase 96 U/L (35-105) 05/22/25 09:25 Total Protein 6.9 g/dL (6.6-8.7) 05/22/25 09:25 Albumin 4.1 g/dL (3.5-5.2) 05/22/25 09:25 Globulin 2.8 g/dL (1.3-4.6) 05/22/25 09:25 Lipase 31 U/L (13-60) 05/22/25 09:25 Urine Color Yellow (Yellow) 05/22/25 09:38 Urine Appearance Cloudy (CLEAR) A 05/22/25 09:38 Urine pH 7.0 (5-7) 05/22/25 09:38 Ur Specific [place] 1.006 (1.005-1.030) 05/22/25 09:38 Urine Protein Negative (Negative) 05/22/25 09:38 Urine Glucose (UA) Negative (Normal) 05/22/25 09:38 Urine Ketones Negative (Negative) 05/22/25 09:38 Urine Blood Negative (Negative) 05/22/25 09:38 Urine Nitrate Negative (Negative) 05/22/25 09:38 Urine Bilirubin Negative (Negative) 05/22/25 09:38 Urine Urobilinogen 0.2 mg/dL (Negative) 05/22/25 09:38 Ur Leukocyte Esterase 2+ (Negative) A 05/22/25 09:38 Urine RBC 0-2 /hpf (0-2) 05/22/25 09:38 Urine WBC 11-20 /hpf (0-5) H 05/22/25 09:38 Ur Squamous Epith Cells 11-20 /hpf (0-5) H 05/22/25 09:38 Amorphous Sediment Not Reportable 05/22/25 09:38 Urine Bacteria 3+ /hpf (NONE) H 05/22/25 09:38 Hyaline Casts 0.81 /lpf 05/22/25 09:38 No radiology studies performed this visit Discharge Plan Discharge Patient Disposition: Home Clinical Impression: Diverticulitis Condition: Stable Prescriptions: New hydrocodone-acetaminophen 5-325 mg tablet 1 tab PO Q6H PRN (Reason: pain) Qty: 10 0RF ondansetron HCl 4 mg tablet 4 mg PO Q6H PRN (Reason: nausea and vomiting) Qty: 20 0RF amoxicillin-pot clavulanate 875-125 mg tablet 1 tab PO BID Qty: 20 0RF No Action propranolol 10 mg tablet 20 mg PO BID meloxicam 15 mg tablet 7.5 mg PO DAILY PRN (Reason: pain) tizanidine 4 mg tablet 4 mg PO BEDTIME liothyronine 25 mcg tablet 25 mcg PO QAM levothyroxine 125 mcg tablet 125 mcg PO DAILY montelukast 10 mg tablet 10 mg PO DAILY duloxetine 30 mg capsule,delayed release(DR/EC) 30 mg PO DAILY clonazepam 0.5 mg Tablet 0.5 mg PO TID baclofen 10 mg Tablet 10 mg PO BID progesterone micronized 200 mg Capsule 200 mg PO BEDTIME estradiol 0.5 mg Tablet 0.5 mg PO DAILY nystatin 100,000 unit/gram Powder 1 applic TOPICAL BID PRN (Reason: Skin Irritation) albuterol sulfate 90 mcg/actuation Hfa Aerosol Inhaler 1 inh INHALATION .Q4-6H PRN (Reason: Shortness Of Breath) Discharge Orders: Discharge ED (Routine); Ordered 05/22/25 Ordered By: Mikhail Kapoor Referrals: Jo Tinoco FNP [Primary Care Provider, Unknown] Discharge Diet: Full LIquid Discharge Activity: Increase activity as tolerated Patient Instructions: Diverticulitis (ED), Abdominal Pain (ED), Opioid Safety, Pain Management, Patient Portal & Jessica Instructions Activity Restrictions/Additional Instructions: Thank you for choosing [facility] for your healthcare needs today. It is very important that you follow up as instructed or that you return to the Emergency Department should you have concerns or if your condition changes or worsens in any way. Emergency department visits are focused on emergent conditions, in some cases you may require further evaluation on an outpatient basis. You were seen in the emergency room with complaints of left lower quadrant abdominal pain your white count is not significantly elevated. Your history is consistent with diverticulitis we will start you on antibiotics 1 pill twice a day for 10 days. Recommend liquid diet for the next 2 to 3 days. You are also given pain and nausea medications to use as needed if your symptoms worsen you can return to the emergency room. (Please note that included in your discharge packet is information concerning opioid safety and pain management. This information is given to all patients were discharged from the ER regardless of their discharge diagnosis or the medicines they usually take or are prescribed.) Print Language: Romanian Coding Level of Care Code ED Celery Stripper for Jono Marina
[2025-05-22 09:27] VITALS: BP 133/68; PULSE 67; RESP 14; TEMP 36.3; O2SAT 97; BMI 31.6
--- OUTSIDE RECORDS SUMMARY | 2025-05-22 09:30 | XMS_ITS | Clinical Summary ---
Author Organization [facility] Address [address] [place] [address] Care Team Providers Care Plant Equipment Engineer Name Role Phone Unavailable Primary Care Provider Unavailabl e Allergies No known active allergies Medications DULoxetine (CYMBALTA) 30 mg Capsule, Delayed Release(E.C.) Take 30 mg by mouth daily. Active levothyroxine 50 mcg Oral tablet Take 50 mcg by mouth daily early morning babysitter. Active predniSONE (DELTASONE) 10 mg tablet Take 10 mg by mouth 2 times daily. Active fluticasone (FLONASE) 50 mcg/spray [place], Suspension Administer 1-2 Sprays in each nostril daily. 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 Gender Identity Not on file Sexual Orientation Not on file Last Filed Vital Signs Vital Sign Reading Time Taken Comments Blood Pressure 126/84 06/25/2014 1:59 PM SUPERINTENDENT Pulse - - Temperature - - Respiratory Rate - - Oxygen Saturation - - Inhaled Oxygen Concentration - - Weight 79.4 kg (175 lb) 06/25/2014 1:59 PM SUPERINTENDENT Height 165.1 cm (5' 5 ) 06/25/2014 1:59 PM SUPERINTENDENT Body Mass Index 29.12 06/25/2014 1:59 PM SUPERINTENDENT Plan of Treatment Health Maintenance Due Date Last Done Comments DTAP/TDAP/TD VACCINES (1 - Tdap) 1980 HPV/Cotest (21-29) 1982 CERVICAL CANCER SCREENING 1991 HPV/Cotest (30-65) 1991 PAP SMEAR 1991 BREAST CANCER SCREENING 2001 COLORECTAL SCREENING 2006 Colorectal Cancer Screening 2006 FIT-DNA Q 3 years 2006 FIT/FOBT Q 1 year 2006 Flex Sig/CT Colonography Q 5 years 2006 ZOSTER VACCINE (1 of 2) 2011 INFLUENZA VACCINE (#1) 2025 RSV VACCINE (60+ or ) (1 - 1-dose 75+ series) 2036 Insurance
--- OUTSIDE RECORDS SUMMARY | 2025-05-22 09:30 | XMS_ITS | Encounter Summary ---
Author Organization [facility] Address [address] [place] [address] Care Team Providers Care Forging Roll Operator Name Role Phone Unavailable Primary Care Provider Unavailabl e Encounter Details Date Type Department Care Team (Latest Contact Info) Description 09/29/2005 Outpatient Historical [facility] [address] 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
--- OUTSIDE RECORDS SUMMARY | 2025-05-22 09:30 | XMS_ITS | Encounter Summary ---
Author Organization [facility] Address [address] [place] [address] Care Team Providers Care Four H Agent Name Role Phone Unavailable Primary Care Provider Unavailabl e Encounter Details Date Type Department Care Team (Latest Contact Info) Description 08/18/2005 Outpatient Historical [facility] D[facility]- 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
--- OUTSIDE RECORDS SUMMARY | 2025-05-22 09:30 | XMS_ITS | Patient Health Record ---
Author Organization [facility] Address [address] [place] [address] Care Team Providers Care Airfield Engineer Officer Name Role Phone Isaias Dodge Primary Care Provider Allergies Allergen (clinical drug ingredient) Drug/Non Drug Allergy documented on EMR Reaction Allergy Type Onset Date Status tramadol Tramadol , Drug Allergy Active Reason For Referral No Information Medications Medication SIG (Take, Route, Frequency, Duration) Notes Start Date End Date Status montelukast 10 MG Oral Tablet montelukast 10 MG Oral Tablet 07/14/2017 Active Spironolactone 100 MG Oral Tablet Spironolactone 100 MG Oral Tablet 07/14/2017 Active Claritin Claritin 07/14/2017 Active thyroid (SENIOR CARE) 65 MG Oral Tablet thyroid (SENIOR CARE) 65 MG Oral Tablet 07/14/2017 Active tizanidine 4 MG Oral Tablet tizanidine 4 MG Oral Tablet 07/14/2017 Active fluticasone furoate 0.0275 MG/ACTUAT Metered Dose Nasal [place] fluticasone furoate 0.0275 MG/ACTUAT Metered Dose Nasal [place] 07/14/2017 Active Immunizations Vaccine Route Administration Date Status Comme nts Influenza (whole), CPT 69473 Inactive Unknown 04/11/2017 Administered Social History Social History Additional Details Category Social Info Options Details zzMigrated Social History Migrated Social History Smoking Status:Never smoked tobacco (finding) Plan Of Treatment No Information
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
--- OUTSIDE RECORDS SUMMARY | 2025-05-22 09:30 | XMS_ITS | Encounter Summary ---
Author Organization [facility] Address [address] [place] [address] Care Team Providers Care Home Therapy Clinician Name Role Phone Unavailable Primary Care Provider Unavailabl e Encounter Details Date Type Department Care Team (Latest Contact Info) Description 09/29/2005 Outpatient Historical [facility]- [facility] [place] [address] [place] [address] Suresh Howard MD NO ADDRESS ON FILE Benign Neoplasm of Skin of Other and Unspecified Parts of Face (Primary Dx); Unspecified Disorder of Skin and Subcutaneous Tissue Social History Tobacco Use Types Packs/Day Years Used Date Smoking Tobacco: Never Assessed Comments Unknown Sex and Gender Information Value Date Recorded Sex Assigned at Not on file Legal Sex Female 4:22 AM [employer] Gender Identity Not on file Sexual Orientation Not on file documented as of this encounter Plan of Treatment Not on file documented as of this encounter Visit Diagnoses Diagnosis Benign neoplasm of skin of other and unspecified parts of face- Primary Unspecified disorder of skin and subcutaneous tissue documented in this encounter
[2025-05-22 09:33] LABS: Hematocrit 41.9 % (36-47); Hemoglobin 14.20 g/dL (11.27-16.99); Mean Corpuscular HGB Conc 33.9 g/dL (30-55); Mean Corpuscular Hemoglobin 29.6 pg (27-33); Mean Corpuscular Volume 87.5 fl (85-98); Nucleated Red Blood Cells % 0 %; Platelet Count 361 10^3/cmm (157-399); Red Blood Count 4.79 10^6/uL (3.85-5.65); White Blood Count 10.10 10^3/uL (3.29-11.43)
[2025-05-22] MEDS: ondansetron 2 mg/ML SDV 2 mL 4 MG IVP (09:40)
[2025-05-22 09:57] LABS: Glucose Urine UA Negative (Normal); Nitrate Urine Negative (Negative); Specific Gravity, Urine 1.006 (1.005-1.030)
[2025-05-22 10:00] LABS: Add Urine Microscopic? YES
[2025-05-22 10:02] LABS: Alanine Aminotransferase 25 U/L (0-33); Albumin Level 4.1 g/dL (3.5-5.2); Alkaline Phosphatase 96 U/L (35-105); Anion Gap 15.5 (5-19); Aspartate Amino Transferase 20 U/L (0-32); Blood Urea Nitrogen 8 mg/dL (8-23); Calcium 9.4 mg/dL (8.5-10.5); Carbon Dioxide 24 mmol/L (22-29); Chloride 106 mmol/L (98-107); Creatinine Clr Calc Pharmacy 89.1798; Globulin 2.8 g/dL (1.3-4.6); Glucose 112 mg/dL (65-115); Lipase 31 U/L (13-60); Osmolality Calculated 291 mOsm/kg (285-295); Potassium 4.5 mmol/L (3.5-5.1); Sodium 141 mmol/L (136-145); Total Protein 6.9 g/dL (6.6-8.7)
--- NOTE | 2025-05-22 10:10 | PC.PHAR ---
Beka Lynn is faxing current med list 05/22/25 10:11am
[2025-05-22 10:14] VITALS: BP 139/83; PULSE 83; O2SAT 100
[2025-05-22 10:32] VITALS: BP 126/79; PULSE 78; O2SAT 99
== END 2025-05-22 10:34 | disposition home or self-care (01) ==
PROVIDERS: Emergency Provider Family Medicine; PCP Nurse Practitioner Family
DX: K57.92 Diverticulitis of intestine, part unspecified, without perforation or abscess without bleeding (principal)
CPT/HCPCS: 36415; 80053; 81001; 83690; 85025; 87086; 96374; 99284; J2405; J7030